=== PATIENT | female | born 1990 | race Caucasian/White ===

== ENCOUNTER 2023-02-02 17:36 | Emergency (ER) | payer BC ==
[2023-02-02 18:15] VITALS: TEMP 98.7; BMI 24.5
[2023-02-02 18:28] LABS: HCG,QUALITATIVE URINE Negative
[2023-02-02 18:29] LABS: HEMATOCRIT 32.5 % (32.4-45.2); HEMOGLOBIN 11.1 G/dL (10.7-15.3); MCH 30.9 pg (25.7-33.7); MCHC 34.3 g/dl (32.0-36.0); MEAN CELL VOLUME 90.4 fl (80-96); MEAN PLT VOLUME 11.5 fl (7.5-11.1); PLATELET COUNT 153.9 10^3/uL (134-434); RDW 13.6 % (11.6-15.6); WHITE BLOOD COUNT 8.9 10^3/uL (4.0-10.8)
[2023-02-02 18:31] LABS: ALBUMIN 4.6 g/dl (3.4-5.0); BILIRUBIN,TOTAL 0.9 mg/dl (0.2-1); BLOOD UREA NITROGEN 20.4 mg/dl (7-18); CALCIUM 9.2 mg/dl (8.5-10.1); CREATININE 0.8 mg/dl (0.6-1.3); POTASSIUM 3.9 mmol/L (3.5-5.1); SGOT/AST 15.8 U/L (15-37)
[2023-02-02 18:49] LABS: ANISOCYTOSIS FEW
[2023-02-02 18:50] LABS: PLATELET ESTIMATE SLT DECREASE
[2023-02-02] MEDS ORDERED: ONDANSETRON 4 MG/2 ML VIAL IVPB ONE (19:01)
[2023-02-02] MEDS ORDERED: FAMOTIDINE 20 MG/50 ML IVPB 20 MG/50 ML MG IVPB ONE ×2 (19:01→19:08)
[2023-02-02] MEDS ORDERED: SODIUM CHLORIDE 1,000 ML IV STA (19:01)
[2023-02-02] MEDS ORDERED: ONDANSETRON 4 MG/2 ML VIAL ONE (19:09)
[2023-02-02 19:32] VITALS: BP 100/66; PULSE 85; RESP 16
== END 2023-02-02 20:01 | disposition home or self-care (01) ==
LOC: FER 17:36
PROC: 3E033GC Introduction of Other Therapeutic Substance into Peripheral Vein, Percutaneous Approach (ICD-10-PCS; principal; 2023-02-02)
PROC: 3E033GC Introduction of Other Therapeutic Substance into Peripheral Vein, Percutaneous Approach (ICD-10-PCS; 2023-02-02)
DX: R10.9 Unspecified abdominal pain (principal); R11.0 Nausea; A08.4 Viral intestinal infection, unspecified
CPT/HCPCS: 36415; 80053; 81003; 84703; 85027; 99284-25

== ENCOUNTER 2023-11-14 20:38 | Emergency (ER) | payer BC ==
[2023-11-14 20:43] VITALS: BP 110/77; PULSE 73; RESP 18; TEMP 98.3; BMI 23.3
[2023-11-14] MEDS ORDERED: KETOROLAC TROMETHAMINE 60 MG/2 ML VIAL ONE (21:22)
[2023-11-14] MEDS ORDERED: CYCLOBENZAPRINE HCL 5 MG TABLET ONE (21:23)
[2023-11-14] MEDS: CYCLOBENZAPRINE HCL 10 MG TABLET (FP) PO ONE (21:29)
[2023-11-14] MEDS: KETOROLAC TROMETHAMINE 60 MG/2 ML VIAL IM ONE (21:29)
[2023-11-14] MEDS ORDERED: diazePAM 5 MG TABLET ONE ×3 (22:25→23:08)
[2023-11-14] MEDS: diazePAM 5 MG TABLET PO ONE ×2 (22:35→23:11)
[2023-11-15] MEDS ORDERED: predniSONE 20 MG TABLET (UD) ONE (00:16)
[2023-11-15] MEDS: predniSONE 20 MG TABLET (UD) PO ONE (00:21)
[2023-11-15] MEDS ORDERED: LIDOCAINE 5% TOPICAL PATCH ONE (00:29)
[2023-11-15] MEDS: LIDOCAINE 5% TOPICAL PATCH TP ONE (00:33)
[2023-11-15] MEDS ORDERED: LIDOCAINE PATCH REMOVAL MC ONE (13:00)
== END 2023-11-15 00:49 | disposition home or self-care (01) ==
LOC: FER 20:38
PROC: 3E0233Z Introduction of Anti-inflammatory into Muscle, Percutaneous Approach (ICD-10-PCS; principal; 2023-11-14)
DX: M54.41 Lumbago with sciatica, right side (principal)
CPT/HCPCS: 99284-25